=== PATIENT | male | born 1955 | race Caucasian/White ===

== ENCOUNTER 2017-05-15 22:18 | Emergency (ER) | payer OTHER ==
[2017-05-15 23:33] VITALS: BP 131/75
[2017-05-15] MEDS ORDERED: Bacitracin Oint 1 GM U/D Packet TOP ONE (23:43)
--- NOTE | 2017-05-15 23:48 | EDM.PDOC ---
ED HPI GENERAL MEDICAL PROBLEM - General Chief Complaint: Laceration Stated Complaint: FISH HOOK IN HAND Time Seen by Provider: 05/15/17 23:39 Source of Information: Reports: Patient History Limitations: Reports: No Limitations - History of Present Illness INITIAL COMMENTS - FREE TEXT/NARRATIVE: fish hook; this is a 61 year old male presents to ER for fish hook removal. reports using a new fishing lure, casted out got a "nice " size walleye, the fish flopped and he got the hook in his hand. Onset: Today Duration: Hour(s): Location: Reports: Upper Extremity, Left Quality: Reports: Other (fish hook to left hand) Improves with: Reports: Immobilization Worsens with: Reports: Movement Context: Reports: Other (fish hook) Associated Symptoms: Reports: No Other Symptoms - Related Data Allergies Allergy/AdvReac Type Severity Reaction Status Date / Time morphine Allergy Nausea and Verified 05/16/17 00:00 Vomiting Home Meds: Home Meds NK [No Known Home Meds] 05/16/17 [History] ED ROS GENERAL - Review of Systems Review Of Systems: See Below Constitutional: Reports: No Symptoms Musculoskeletal: Reports: Muscle Pain Skin: Reports: Other (fish hook to the cuolter side of base of first finger ) Psychiatric: Reports: No Symptoms ED EXAM, SKIN/RASH Exam: See Below Exam Limited By: No Limitations General Appearance: Alert, WD/WN, No Apparent Distress Extremities: Other (hand painful secondary to fish hook.) Neurological: Alert, Oriented, No Motor/Sensory Deficits Skin: Warm, Dry, Normal Color, Other (fish hook) Location, Skin: Upper Extremity, Left Characteristics: Other (fish hoot with 3 prongs x2 on lure) Associated features: Tenderness ED SKIN PROCEDURES - Foreign Body Removal Consent Obtained:: Patient Performing Doctor:: Zoila Rick Foreign Body Other Location Comment:: fish hook to left hand Anesthesia Type: Local Complications:: No Comments:: Mr. Blankenship given verbal permission to remove fish hook cleansed with saline and alcohol prep injected with lidocaine 1%, anesthesia obtained push hook thru skin, then clipped the end of the hook no complications with removal of hook patient then washed hand bacitracin ointment and bandage applied. Course - Vital Signs Last Recorded V/S: Last Vital Signs Temp 36.2 C 07/22/17 23:32 Pulse 60 05/15/17 23:32 Resp 16 05/15/17 23:32 BP 131/75 05/15/17 23:32 Pulse Ox 95 05/15/17 23:32 - Orders/Labs/Meds Meds: Medications Discontinued Medications Generic Name Dose Route Start Last Admin Trade Name Rufina PRN Reason Stop Dose Admin Bacitracin 1 dose 05/15/17 23:43 05/16/17 00:01 Bacitracin Oint 1 Gm TOP 05/15/17 23:44 1 dose ONETIME ONE Administration Lidocaine HCl 5 ml 05/15/17 23:42 05/16/17 00:01 Xylocaine-Mpf 1% INJECT 05/15/17 23:43 5 ml ONETIME ONE Administration Departure - Departure Time of Disposition: 00:23 Disposition: Home, Self-Care 01 Condition: Good Clinical Impression: Foreign body Fish hook injury of left palm Qualifiers: Encounter type: initial encounter Qualified Code(s): S69.92XA - Unspecified injury of left wrist, hand and finger(s), initial encounter - Discharge Information Instructions: Stab Wound Referrals: PCP,None [Primary Care Provider] - Forms: ED Department Discharge Care Plan Goals: Fish Hook left hand -removed without complication -apply bacitracin ointment two times a day for 3 days then keep clean and dry -monitor for signs of infection; redness, discharge, swelling, increase pain, return to ER or Urgent Care for evaluation. Return to Clinic or ER if not improved or symptoms worsen. - Problem List & Annotations (1) Fish hook injury of left palm SNOMED Code(s): 415535309 Code(s): S69.92XA - UNSP INJURY OF LEFT WRIST, HAND AND FINGER(S), INIT ENCNTR Status: Acute Priority: High Current Visit: Yes Qualifiers: Encounter type: initial encounter Qualified Code(s): S69.92XA - Unspecified injury of left wrist, hand and finger(s), initial encounter (2) Foreign body SNOMED Code(s): 809054818 Code(s): [id number] - Status: Acute Priority: High Current Visit: Yes - Problem List Review Problem List Initiated/Reviewed/Updated: Yes - Assessment/Plan Plan: Fish Hook left hand -removed without complication -apply bacitracin ointment two times a day for 3 days then keep clean and dry -monitor for signs of infection; redness, discharge, swelling, increase pain, return to ER or Urgent Care for evaluation. Return to Clinic or ER if not improved or symptoms worsen.
== END 2017-05-16 00:11 | disposition home or self-care (01) ==
LOC: JP.ED 22:18
DX: S60.451A Superficial foreign body of left index finger, initial encounter (principal); Z88.5 Allergy status to narcotic agent; W45.8XXA Other foreign body or object entering through skin, initial encounter
CPT/HCPCS: 99283